=== PATIENT | female | born 1955 | race Caucasian/White ===

== ENCOUNTER → 2017-04-04 | Outpatient (CLI) | payer OTHER ==
[~2017-04-04] VITALS: Ht 167.6 cm; Wt 83.0 kg
[~2017-04-04] MED LIST: ASPI-110 PO; BENA10TA PO; CHLORHEXIDINE GLUCONATE 2 % 1 PACK (2 CLOTHS) TOPICAL PRN; CO Q100C9 PO; DICL1CAP4 PO; HYDR-3133 PO; HYDR25TA5 PO; INSULIN HUMAN REGULAR 1,000 UNITS/10 ML VIAL SQ PRN; LACTATED RINGER'S 1000 ML IV PRN; LOVA10TA PO; MEDI220T PO; METO50TA PO; METOPROLOL TARTRATE 25 MG TAB PO PRN; POVIDONE IODINE 5% (ANTISEPSIS KIT) 4 APPLICATIONS EACH NARE PRN; PROPOFOL 200 MG/20 ML AMP IV ONE; SODIUM CHLORID 0.9% 500 ML IV PRN; TRAZ50TA12 PO; VITA10002 PO; VITA100064 PO; ZOSTINJ SQ
[2017-04-04 11:19] VITALS: BP 131/69; PULSE 59; RESP 18; TEMP 98.6; O2SAT 99
[2017-04-04 14:19] VITALS: BP 126/85; PULSE 69; RESP 18; O2SAT 97
--- NOTE | 2017-04-05 08:05 | EKG ---
Date Performed: 04/04/2017 Time Performed: 11:41:53 PTAGE: 61 years EKG: SINUS BRADYCARDIA BORDERLINE ECG NO PREVIOUS TRACING DOCTOR: Wang Hurst Interpretating Date/Time 04/05/2017 08:03:39
--- NOTE | 2017-04-09 08:59 | MR ---
cc: LELA DAILEY M.D. DATE: 04/04/2017. TYPE OF PROCEDURE: Colonoscopy. INDICATIONS FOR THE PROCEDURE: Family history of colon polyps. Screening colonoscopy. Increased risk. Photographs were taken. No biopsies. PRE-MEDICATIONS: Administered by anesthesiology. Monitoring was accomplished by pulse oximeter, EKG, blood pressure monitor. DESCRIPTION OF THE PROCEDURE IN DETAIL: After informed consent was obtained and the procedure risks and benefits were explained including the risks of bleeding, sepsis, perforation, risks of anesthesia, the patient was placed in the left lateral position. The video colonoscope was inserted into the rectum and passed easily to the cecal position. Colonic mucosa throughout appeared to be grossly normal. The scope was then gradually withdrawn. In the descending colon, scattered diverticula were noted. I did not appreciate any space-occupying lesions or polyps throughout the exam. In the rectum, the scope was retroflexed and grade 1 internal hemorrhoids were noted without active bleeding. The scope was then straightened and removed. The patient tolerated the procedure well. No immediate complications were noted. IMPRESSION: 1. Mild diverticulosis. 2. Grade 1 hemorrhoids. 3. Colonic polyps were not encountered on this exam. 4. Preparation was very good. PLAN: 1. Recommend repeat colonoscopy in 5 years for surveillance. 2. recommend high fiber diet and fiber supplements. MD SHIRLEY Norris/EAMON /2:09 PM /8:53 AM
== END ==
LOC: HEND 10:51
PROVIDERS: ATTEND Internal Medicine Gastroenterology
DX: Z12.11 Encounter for screening for malignant neoplasm of colon (principal); Z83.71 Family history of colonic polyps; K64.8 Other hemorrhoids; K57.90 Diverticulosis of intestine, part unspecified, without perforation or abscess without bleeding; Z01.810 Encounter for preprocedural cardiovascular examination
CPT/HCPCS: 00810; 45378; 93005; J7120